=== PATIENT | female | born 1940 | race Caucasian/White ===

== ENCOUNTER → 2025-02-15 09:11 | Outpatient (REF) | payer MEDICARE, SELFPAY ==
[2025-02-15 10:14] LABS: Hematocrit 39.6 % (37.0-47.0); Hemoglobin 12.9 g/dL (12.0-16.0); Mean Corp Hgb Conc. 32.6 g/dL (33.0-37.0); Mean Corpuscular Volume 85.9 fL (81.0-99.0); Nucleated Red Blood Cells % 0 %; Platelet Count 223 10^3/uL (130-400); Red Cell Dist. Width 14.8 % (11.5-14.5)
[2025-02-15 10:44] LABS: ALT (SGPT) 25 U/L (0-35); AST (SGOT) 32 U/L (14-36); Albumin 4.1 g/dl (3.5-5.0); Alkaline Phosphatase 108 U/L (38-126); Blood Urea Nitrogen 17 mg/dl (7-17); Calcium 9.2 mg/dl (8.4-10.2); Carbon Dioxide 28 mmol/L (22-30); Chloride 109 mmol/L (98-107); Glucose 91 mg/dl (70-99); HDL Cholesterol 54 mg/dl; LDL Cholesterol, Calculated 93 mg/dl; Potassium 4.3 mmol/L (3.5-5.1); Sodium 141 mmol/L (135-145); Total Protein 6.5 g/dl (6.3-8.2); Very Low Density Lipoprotein 19 mg/dl (0-30); eGFR > 60.00
== END ==
LOC: RAD 09:11
PROVIDERS: ATTENDING PHYSICIAN Internal Medicine
DX: C50.612 Malignant neoplasm of axillary tail of left female breast (principal); M25.552 Pain in left hip; I10 Essential (primary) hypertension; E78.2 Mixed hyperlipidemia
CPT/HCPCS: 36415; 73502; 80053; 80061; 84439; 84443; 85025